=== PATIENT | female | born 1945 | race Caucasian/White ===

== ENCOUNTER 2019-10-26 20:36 | Emergency (ER) | payer OTHER ==
[~2019-10-26] VITALS: Ht 167.6 cm; Wt 342.0 kg
== END 2019-10-26 21:41 | disposition home or self-care (01) ==
LOC: ER 20:36
DX: S91.231A Puncture wound without foreign body of right great toe with damage to nail, initial encounter (principal); W23.0XXA Caught, crushed, jammed, or pinched between moving objects, initial encounter; Y93.89 Activity, other specified; Y92.59 Other trade areas as the place of occurrence of the external cause; Y99.8 Other external cause status